=== PATIENT | male | born 1995 | race Caucasian/White ===

== ENCOUNTER 2021-06-20 12:32 | Outpatient (CLI) | payer OTHER, SELFPAY ==
--- NOTE | 2021-06-20 12:58 | ECHO_ITS ---
Patient Info Name: Rocael Agosto Age: 25 years : 1995 Gender: Male Ht: 65 in Wt: 170 lbs BSA: 1.90 m2 HR: 78 bpm BP: 121 / 79 mmHg Heart Rhythm: Sinus Rhythm Technical Quality: Good Exam Date: 06/20/2021 1:11 PM Exam Location: [facility] Patient Status: Outpatient Admit Date: 06/20/2021 Staff Ordering Physician: Rigoberto Lopez DO Inner Tube Cutter: Astrid Weathers RDCS Attending Provider: Rigoberto Loepz DO Referring Physician: John VILLANUEVA; Exam Type: CA echo dop color flow w con Study Info Indications - congenital heart malformation hx/o vaters syndrome Complete two-dimensional, color flow and Doppler transthoracic echocardiogram is performed. Summary 1. Complete two-dimensional, color flow and Doppler transthoracic echocardiogram is performed. 2. Left ventricular chamber dimension is normal. 3. Left ventricular systolic function is normal, estimated at 60-65%. 4. The left ventricular diastolic function is normal. 5. E/e' 5 is not elevated. 6. No pulmonary hypertension, estimated pulmonary arterial systolic pressure is 38 mmHg. Left Ventricle E/e' 5 is not elevated. Left ventricular chamber dimension is normal. Left ventricular systolic function is normal, estimated at 60-65%. The left ventricular diastolic function is normal. Right Ventricle Right ventricular systolic function is normal and with normal TAPSE 2.2 cm. Right ventricular chamber dimension is normal. Left Atria Left atrial chamber dimension is normal. Right Atria Right atrial chamber dimension is normal. Aortic Valve The aortic valve is trileaflet. There is no aortic valve stenosis. There is no aortic valve regurgitation. Pulmonic Valve There is no pulmonic regurgitation. Mitral Valve There is no mitral valve stenosis. There is no mitral valve regurgitation. Tricuspid Valve There is no tricuspid valve regurgitation. No pulmonary hypertension, estimated pulmonary arterial systolic pressure is 38 mmHg. Pericardium/Pleural There is no pericardial effusion. Inferior Vena Cava Normal inferior vena cava with >50% collapse upon inspiration consistent with normal right atrial pressure, 5 mmHg. Aorta The aortic root size at the sinus of Valsalva is normal. Left Ventricular Outflow Tract Name Value Normal LVOT 2D LVOT Diameter 2.03 cm LVOT Doppler LVOT Peak Gradient 5 mmHg LVOT Mean Gradient 2 mmHg LVOT VTI 17.48 cm LVOT VTI/AV VTI Ratio 0.83 LVOT Stroke Volume 56.28 ml LVOT CO 14.31 l/min LVOT CI 7.53 L/min/m2 Pulmonic Valve Name Value Normal RVOT Doppler RVOT Peak Gradient 2 mmHg PV Doppler -------
== END 2021-06-20 12:33 | disposition home or self-care (01) ==
LOC: ANHCARD 12:35
PROVIDERS: PCP Nurse Practitioner Family; Visit Provider Internal Medicine Cardiovascular Disease
DX: Q24.9 Congenital malformation of heart, unspecified (principal)
CPT/HCPCS: 93306